=== PATIENT | female | born 1995 | race Caucasian/White ===

== ENCOUNTER 2019-10-20 15:50 | Inpatient (IN) ==
[2019-10-20 11:52] LABS: Amphetamine Screen,Urine Negative ng/mL (Cutoff=1000); Barbiturate Screen,Urine Negative ng/mL (Cutoff=200); Benzodiazepines Screen,Urine Negative ng/mL (Cutoff=200); Cannabinoid Screen,Urine Negative ng/mL (Cutoff = 50); Cocaine Screen,Urine Negative ng/mL (Cutoff= 300); Opiate Screen,Urine Negative ng/mL (Cutoff=300); Phencyclidine Screen,Urine Negative ng/mL (Cutoff=25)
[~2019-10-20 15:50] MED LIST: *HR* Nalbuphine 10 MG/ML AMPUL IVP PRN; Famotidine 20 MG/2 ML VIAL IVP PRN; Lidocaine 1% 20 ML MDV INFILT PRN; Metoclopramide 10 MG/2 ML VIAL IVP PRN; Naloxone 0.4 MG/ML INJ IVP PRN; Ondansetron 4 MG/2 ML VIAL IVP PRN; Oxytocin 20 units/ LR 1000 mL 20 UNIT/1,000 ML BAG IVC SCH
[2019-10-20 15:53] LABS: Basophils % 0.1 %; Eosinophils # 0.1 K/mcL (0.0-0.6); Hematocrit 31.5 % (35.3-44.9); Hemoglobin 11.1 g/dL (11.5-15.4); Immature Granulocytes % 0.6 % (0-4); Lymphocytes # 1.7 K/mcL (0.6-4.6); Lymphocytes % 19.9 %; Mean Corpuscular HGB Conc 35.2 g/dL (31.6-35.5); Mean Corpuscular Hemoglobin 30.3 pg (28.0-33.3); Mean Corpuscular Volume 86.1 fL (83.0-100.0); Mean Platelet Volume 10.7 fL (9.4-12.4); Monocytes # 0.7 K/mcL (0.0-1.3); Monocytes % 8.7 %; Neutrophils # 5.8 K/mcL (1.6-8.9); Platelet Count 235 K/mcL (140-400); Red Blood Count 3.66 M/mcL (3.82-4.97); Red Cell Distribution Width 11.9 % (11.5-14.5); Segmented Neutrophils % 69.7 %; White Blood Count 8.4 K/mcL (4.3-11.1)
[2019-10-21] MEDS: Ringers Solution, Lactated 1,000 ML IVC SCH ×2 (02:13→04:46)
[2019-10-21] MEDS ORDERED: Epidural Premix (fent/bupiv) 110 ML EP ONE (03:31)
[2019-10-21] MEDS ORDERED: Epidural Premix (fent/bupiv) 110 ML EP SCH (04:30)
[2019-10-21] MEDS ORDERED: Famotidine 20 MG/2 ML VIAL IVP ONE (09:12)
[2019-10-21] MEDS ORDERED: Ondansetron 4 MG/2 ML VIAL IVP ONE (09:12)
[2019-10-21] MEDS ORDERED: Acetaminophen 325 MG TABLET PO ONE (11:49)
[2019-10-21] MEDS ORDERED: Acetaminophen 325 MG TABLET PO PRN (12:07)
[2019-10-21] MEDS ORDERED: Lanolin 7 G OINT...G. TP PRN (12:07)
[2019-10-21] MEDS ORDERED: Benzocaine/Menthol 56 GM AEROSOL SPRAY TP PRN (12:07)
[2019-10-21] MEDS ORDERED: Ibuprofen 600 MG TABLET PO PRN (12:07)
[2019-10-21] MEDS ORDERED: Acetaminophen IV 1,000 MG/100 ML INFUS..BTL IVPB ONE (12:35)
[2019-10-21] MEDS ORDERED: Ondansetron 4 MG/2 ML VIAL IVP PRN (13:49)
[2019-10-21] MEDS ORDERED: Ondansetron 4 MG/2 ML VIAL ONE (13:49)
[2019-10-21] MEDS: Oxytocin 20 units/ LR 1000 mL 20 UNIT/1,000 ML BAG IVC SCH ×2 (13:55→16:06)
[2019-10-21] MEDS: Acetaminophen 325 MG TABLET PO PRN (18:10)
[2019-10-21] MEDS: Ketorolac 30 MG/ML VIAL IVP SCH (22:11)
[2019-10-22] MEDS: Acetaminophen 325 MG TABLET PO PRN (03:38)
[2019-10-22] MEDS: Ketorolac 30 MG/ML VIAL IVP SCH ×2 (04:56→11:28)
[2019-10-22] MEDS ORDERED: Prenatal Vit/FA 1 EACH TABLET PO SCH (09:00)
[2019-10-22 09:22] VITALS: BP 119/77
== END 2019-10-22 14:00 | disposition home or self-care (01) | DRG 560 ==
LOC: 1NENULAB → 1NENUOBS 10-21 14:16
PROVIDERS: ADMIT Advanced Practice Midwife; ATTEND Advanced Practice Midwife